=== PATIENT | female | born 1995 | race Caucasian/White ===

== ENCOUNTER 2021-04-02 21:08 | Emergency (ER) | payer OTHER ==
[~2021-04-02] VITALS: Ht 160 cm; Wt 63.7 kg
--- NOTE | 2021-04-02 21:08 | NUR ---
PT DAIANA MONTAÑO, PREBOOK. TAKEN TO CHAIR
[2021-04-02 21:10] VITALS: BP 121/81
[2021-04-02 21:27] VITALS: BP 121/81
--- NOTE | 2021-04-02 21:27 | NUR ---
PATIENT BIB [employer]. PATIENT EXAMINED BY DR. ALVA. PATIENT MEDICALLY CLEARED AND RELEASED IN CUSTODY IN STABLE CONDITION. ORIGINAL PRE-BOOK FORM GIVEN TO OFFICER [facility] #[id number].
== END 2021-04-02 21:27 ==
LOC: MED 21:08
DX: Z02.89 Encounter for other administrative examinations (principal); V89.2XXA Person injured in unspecified motor-vehicle accident, traffic, initial encounter; Y93.89 Activity, other specified; Y92.89 Other specified places as the place of occurrence of the external cause; Y99.8 Other external cause status
CPT/HCPCS: 99283